=== PATIENT | female | born 1970 | race Caucasian/White ===

== ENCOUNTER 2021-09-28 16:31 | Emergency (ER) | payer OTHER, SELFPAY ==
[2021-09-28 16:40] VITALS: BP 131/75; PULSE 85; RESP 14; TEMP 36.9; O2SAT 99
--- NOTE | 2021-09-28 17:15 | ED.FEMALEGU ---
HPI - Female Genitourinary General Chief complaint: Urogenital-Female Stated complaint: UTI Sx Time Seen by Provider: 09/28/21 17:08 Source: patient and RN notes reviewed Mode of arrival: ambulatory Limitations: no limitations History of Present Illness HPI Narrative: Patient presents today complaining of dysuria, urgency, frequency, and lower abdominal pressure since this morning that has been worsening throughout the day. Denies hematuria or back pain. She has been taking Azo for her symptoms without much relief. Last dose was this morning. MD elicited complaint: UTI Related Data Home Medications Medication Instructions Recorded Confirmed citalopram [Celexa] 20 mg DIRECTED 09/28/21 09/28/21 Allergies Allergy/AdvReac Type Severity Reaction Status Date / Time No Known Allergies Allergy Verified 09/28/21 16:54 Review of Systems Review of Systems: CONSTITUTIONAL: Denies body aches, fever, chills, or sweats. EYES: Denies visual changes, redness, or discharge. ENT: Denies rhinorrhea, congestion, sore throat, or otalgia. CARDIOVASCULAR: Denies chest pain, palpitations, or edema. RESPIRATORY: Denies cough or dyspnea. GASTROINTESTINAL: Denies abdominal pain, nausea, vomiting, or diarrhea. GENITOURINARY: Denies hematuria. + Dysuria, urgency, frequency, lower abdominal pressure SKIN: Denies rash, itching, or wounds. MUSCULOSKELETAL: Denies back pain, joint pain, or myalgia. NEUROLOGIC: Denies headache, numbness, tingling, or weakness. PSYCH: Denies depression or anxiety. [facility] Past Medical History Medical History (Updated 09/28/21 @ 17:20 by Simin Nguyen, [facility], ) Anxiety Comments At time of signature, I have reviewed and agree with nursing past medical, surgical, social and family history unless otherwise noted. Please see nursing chart for further information. There is no relevant family history pertinent to the presenting complaint Exam Narrative: GENERAL: Well-appearing, well-nourished, and in no acute distress. HEAD: Normocephalic, atraumatic. EYES: EOMI. No redness or drainage. Conjunctivae normal. ENT: Mucous membranes pink and moist. NECK: Normal AROM. CHEST: No respiratory distress. Clear to auscultation. HEART: Regular rate and rhythm. No murmur appreciated. Normal peripheral pulses. ABDOMEN: Soft, nontender, nondistended, normal active bowel sounds.-CVAT MUSCULOSKELETAL: No bony tenderness. EXTREMITIES: Normal range of motion. No edema. SKIN: Warm, dry, no rash. Capillary refill normal. Normal skin turgor. NEURO: No focal deficits. Alert and oriented x3. Gait steady. PSYCH: Normal affect. No signs of depression or anxiety. Course Course Level of Care: Express Care Visit Vital Signs Vital signs: Vital Signs Temperature 98.5 F 09/28/21 16:40 Pulse Rate 85 09/28/21 16:40 Respiratory Rate 14 09/28/21 16:40 Blood Pressure 131/75 09/28/21 16:40 Pulse Oximetry 99 09/28/21 16:40 Temperature 98.5 F 09/28/21 16:40 Pulse Rate 85 09/28/21 16:40 Respiratory Rate 14 09/28/21 16:40 Blood Pressure 131/75 09/28/21 16:40 Pulse Oximetry 99 09/28/21 16:40 Reviewed. Pt has been instructed to follow up with her PCP regarding her elevated blood pressure today. MDM - Female Genitourinary Differential Diagnosis Differential diagnosis: Likely urinary tract infection, vaginitis, cystitis and other (Pyelonephritis, interstitial cystitis) Lab Data Attestation: I reviewed the patient's lab results. Labs: Urine Glucose Negative Reference Range: Negative Urine Bilirubin Negative Reference Range: Negative Urine Ketone Negative Reference Range: Negative Urine Specific [place] 1.030 Reference Range:1.001-1.035
== END 2021-09-28 17:24 | disposition home or self-care (01) ==
PROVIDERS: Emergency Provider Nurse Practitioner
DX: N30.00 Acute cystitis without hematuria (principal); F41.9 Anxiety disorder, unspecified
CPT/HCPCS: 81003; 87086; 87088; 99213; G0463